=== PATIENT | female | born 1950 | race Caucasian/White ===

== ENCOUNTER 2020-11-27 08:00 | Outpatient (CLI) | payer MEDICARE, OTHER | END 2020-11-27 23:59 | disposition home or self-care (01) | LOC: LAB.N 08:00 | PROVIDERS: ATTEND Family Medicine | DX: R30.0 Dysuria (principal) | CPT/HCPCS: 87086; 87181 ==

== ENCOUNTER 2022-09-26 12:49 | Outpatient (CLI) | payer MEDICARE, OTHER ==
--- NOTE | 2022-09-26 14:59 | XRAY Report ---
PROCEDURE: Lumbar Spine Complete INDICATIONS: PAIN IN RIGHT LOWER LEG TECHNIQUE: 4 views of the lumbar spine were acquired. COMPARISON: None. FINDINGS: Mild lumbar levoscoliosis centered at L3-L4 with a mild rotational component. Associated an terolisthesis of L4 on L5 measures 5 mm. No significant listhesis otherwise. Chronic appearing anteri or wedging at T11. Vertebral body heights are otherwise maintained. No suspicious lytic or blastic os seous lesion. Diffuse lumbar intervertebral disc height loss with associated degenerative endplate ch jun and facet hypertrophy, most pronounced at from L2-L3 through L4-L5. Associated moderate to sever e osseous neural foraminal narrowing. IMPRESSION: Moderate to severe lower lumbar spine degenerative changes. MRI recommended. Reviewed by: Hernan Gaines MD on 09/26/2022 2:57 PM PDT Approved by: Hernan Gaines MD on 09/26/2022 2:57 PM PDT Station ID: [id number]
== END 2022-09-26 12:50 | disposition home or self-care (01) ==
LOC: DI 12:49
PROVIDERS: ATTEND Family Medicine
DX: M79.661 Pain in right lower leg (principal); M47.816 Spondylosis without myelopathy or radiculopathy, lumbar region